=== PATIENT | male | born 1960 | race Caucasian/White ===

== ENCOUNTER 2021-11-17 14:09 | Emergency (ER) | payer MEDICARE, MEDICAID ==
[~2021-11-17] VITALS: Ht 188 cm; Wt 131.8 kg
[2021-11-17] MEDS ORDERED: oxyCODONE IR 5mg (immed. release) tablet PO ONE ×2 (16:20→18:40)
[2021-11-17] MEDS ORDERED: iohexol 350MG/ML 100ml bottle IV ONE (17:46)
[2021-11-17] MEDS ORDERED: CEPH500C2 PO (18:28)
[2021-11-17] MEDS ORDERED: OXYC-658 PO (18:30)
[2021-11-17 18:45] VITALS: BP 153/88
== END 2021-11-17 18:49 | disposition home or self-care (01) ==
LOC: ER 14:11
DX: L03.115 Cellulitis of right lower limb (principal); Z20.822 Contact with and (suspected) exposure to COVID-19; M25.561 Pain in right knee; F31.9 Bipolar disorder, unspecified; Z98.890 Other specified postprocedural states; Z79.2 Long term (current) use of antibiotics
CPT/HCPCS: 71045; 71275; 73560; 87635; 93971; 99285; C9803; Q9967

== ENCOUNTER 2021-11-18 12:00 | Emergency (ER) | payer MEDICARE, MEDICAID ==
[~2021-11-18] VITALS: Ht 193 cm; Wt 131.0 kg
[~2021-11-18 12:00] MED LIST: CEPH500C2 PO; OXYC-658 PO
[2021-11-18 12:02] VITALS: BP 133/86
== END 2021-11-18 12:18 | disposition home or self-care (01) ==
LOC: ER 12:02
DX: L03.115 Cellulitis of right lower limb (principal); M25.561 Pain in right knee; F31.9 Bipolar disorder, unspecified; Z98.890 Other specified postprocedural states; Z79.2 Long term (current) use of antibiotics
CPT/HCPCS: 99281